=== PATIENT | female | born 1965 | race Two or more races ===

== ENCOUNTER 2017-06-03 08:02 | Day surgery (SDC) | payer MEDICAID ==
[~2017-06-03] VITALS: Ht 165.1 cm; Wt 92.4 kg
[~2017-06-03 08:02] MED LIST: BUPIVACAINE/PF 0.5% ONE; HEPARIN 1,000 UNITS/ML, 10ML ONE; PROTAMINE SULFATE 10 MG/ML, 5ML ONE; THROMBIN 5,000 UNIT VIAL TP ONE
[2017-06-03] MEDS ORDERED: LIDOCAINE 1%, 2ML ONE (09:14)
[2017-06-03] MEDS ORDERED: ERGO500017 PO (09:16)
[2017-06-03] MEDS ORDERED: CARV3.122 PO (09:16)
[2017-06-03] MEDS ORDERED: SODIUM CHLORIDE 0.9% 1,000 ML IV SCH (09:16)
[2017-06-03] MEDS ORDERED: ONDA4TAB12 PO (09:16)
[2017-06-03] MEDS ORDERED: DOCU100C33 PO (09:16)
[2017-06-03] MEDS ORDERED: FERR324T5 PO (09:16)
[2017-06-03 09:17] VITALS: BP 137/74
[2017-06-03] MEDS ORDERED: LIDOCAINE 1%, 2ML SQ PRN (09:30)
[2017-06-03] MEDS ORDERED: KIDNEY MEDICATION PO (09:34)
[2017-06-03] MEDS ORDERED: FENTANYL PF 100 MCG/2ML ONE ×2 (10:09→11:38)
[2017-06-03] MEDS ORDERED: MIDAZOLAM 1 MG/ML, 2ML ONE (10:09)
[2017-06-03] MEDS ORDERED: PHENYLEPHRINE 10 MG/ML ONE (10:39)
[2017-06-03] MEDS ORDERED: ONDANSETRON 2MG/ML, 2ML ONE (10:39)
[2017-06-03] MEDS ORDERED: CEFAZOLIN 1,000 MG ONE (10:39)
[2017-06-03] MEDS ORDERED: DEXAMETHASONE 4 MG/ML, 1ML ONE (10:39)
[2017-06-03] MEDS ORDERED: EPHEDRINE 50 MG/ML, 1ML ONE (10:39)
[2017-06-03] MEDS ORDERED: OXYcodone 5 MG/5 ML ORAL.SOL UDC PO PRN (11:00)
[2017-06-03] MEDS ORDERED: HYDROmorphone 1 MG/ML, 1ML IV PRN (11:00)
[2017-06-03] MEDS ORDERED: PROMETHAZINE 25 MG/ML, 1ML IV PRN (11:00)
[2017-06-03] MEDS ORDERED: ONDANSETRON 2MG/ML, 2ML IVPush PRN (11:00)
[2017-06-03] MEDS ORDERED: hydrALAzine 20 MG/ML, 1ML IV PRN (11:00)
[2017-06-03] MEDS ORDERED: LABETALOL 5MG/ML, 20ML IV PRN (11:00)
[2017-06-03] MEDS ORDERED: OXYcodone 5 MG/5 ML ORAL.SOL UDC ONE (11:38)
[2017-06-03] MEDS: FENTANYL PF 100 MCG/2ML IV PRN ×3 (11:40→11:51)
[2017-06-03] MEDS ORDERED: HYDROcodone/APAP 5/325 TABLET ONE (15:22)
== END 2017-06-03 15:25 ==
LOC: OUT 08:02
PROVIDERS: ATTEND Surgery Vascular Surgery
DX: I12.0 Hypertensive chronic kidney disease with stage 5 chronic kidney disease or end stage renal disease (principal); N18.6 End stage renal disease
CPT/HCPCS: 36415; 36821; 80047; J0690; J1100; J1644; J2250; J2370; J2405; J3010; J3490; J7030; J2720